=== PATIENT | female | born 2000 | race American Indian/Alaskan Native ===

== ENCOUNTER 2020-03-30 20:25 | Outpatient (CLI) | payer MEDICAID ==
[2020-03-30 21:19] VITALS: BP 124/83
== END 2020-03-30 22:10 | disposition home or self-care (01) ==
LOC: TRG 20:25 → APU 20:31 → TRG 22:10
PROVIDERS: ATTEND Obstetrics & Gynecology
DX: O47.1 False labor at or after 37 completed weeks of gestation (principal); Z3A.41 41 weeks gestation of pregnancy
CPT/HCPCS: 59025; Q0177